=== PATIENT | female | born 1985 | race Two or more races ===

== ENCOUNTER 2023-09-08 15:42 | Emergency (ER) | payer OTHER ==
[2023-09-08] MEDS ORDERED: METOPROLOL XL 50 MG TAB PO ONE (15:58)
[2023-09-08] MEDS ORDERED: METOPROLOL TARTRATE 5 MG/5 ML INJ IV ONE (15:58)
[2023-09-08] MEDS ORDERED: NA CHLORIDE 0.9% 1,000 ML ONE ×2 (15:59→17:25)
[2023-09-08 16:28] LABS: Absolute Basophils 0.1 K/uL (0-0.5); Absolute Eosinophils 0.1 K/uL (0-0.5); Absolute Lymphocytes (CBC) 3.9 K/uL (0.7-4.9); Absolute Monocytes 1.5 K/uL (0.1-1.3); Absolute Neutrophil 8.1 K/uL (1.8-8.0); Basophils % 0.8 % (0-1.3); Hematocrit 44.9 % (36.0-45.0); Hemoglobin 14.7 g/dL (12.0-15.0); Lymphocytes % 28.3 % (15.3-44.8); MCHC 32.8 g/dL (32.0-36.0); MCV 88.3 fL (80-100); MPV 8.2 fL (7.6-11.3); Monocytes % 11.1 % (3.3-12.3); Neutrophils % 58.8 % (41.7-73.7); Platelets 535 thou/uL (152-406); RBC Red Blood Cell Count 5.09 M/uL (3.86-4.86); Red Cell Distribution Width 13.7 % (12.1-15.2)
--- NOTE | 2023-09-08 16:28 | RAD REPORT ---
EXAM DESCRIPTION: RAD - Chest Single View - 09/08/2023 4:20 pm CLINICAL HISTORY: PALPITATIONS Chest pain. COMPARISON: <Comparisons> FINDINGS: Portable technique limits examination quality. The lungs are grossly clear. The heart is normal in size. No displaced fractures. IMPRESSION: No acute intrathoracic process suspected.
[2023-09-08 16:49] LABS: ALT/SGPT 36 U/L (13-56); AST/SGOT 12 U/L (15-37); Albumin 3.8 g/dL (3.4-5.0); Albumin/Globulin Ratio 0.8 (1.1-1.8); Alkaline Phosphatase 103 U/L (45-117); Anion Gap 11.5 mEq/L (5.0-15.0); BUN Blood Urea Nitrogen 11 mg/dL (7-18); Bicarbonate 24 mEq/L (21-32); Bilirubin Total 0.6 mg/dL (0.2-1.0); Globulin 4.5 g/dL (2.3-3.5); Glomerular Filtration Rate 58 ml/min (=/>90); Glucose Level 133 mg/dL (74-106); NT PRO-BNP 6 pg/mL (<125); PT Prothrombin Time 12.3 SECONDS (9.5-12.5); Potassium 3.5 mEq/L (3.5-5.1); Protein, Total 8.3 g/dL (6.4-8.2); Protime INR 1.12; Sodium Level 139 mEq/L (136-145); Troponin High Sensitivity 3.3 pg/mL (<58.9)
[2023-09-08] MEDS ORDERED: MAGNESIUM SULFATE 1 gm IVPB 1 GM/100 ML BAG IV ONE (16:56)
[2023-09-08 16:57] LABS: Bilirubin Direct < 0.2 mg/dL (0-0.2); Bilirubin Indirect, Calculated 0.4 mg/dL (0.2-0.8)
[2023-09-08 17:02] LABS: Specific Gravity 1.011 (1.005-1.030); Sqamous Epithelial <5 /HPF (None Seen); Urine Bacteria None Seen /HPF (<20); Urine Bilirubin NEGATIVE (Negative); Urine Blood Negative (Negative); Urine Clarity Clear (Clear); Urine Color Light-Yellow (Yellow); Urine Culture Reflex Order NOT NEEDED; Urine Glucose NEGATIVE (Negative); Urine Ketones NEGATIVE (Negative); Urine Microscopic Reflex YN ORDER UMIC; Urine Mucus Slight /HPF (None Seen); Urine Nitrite NEGATIVE (Negative); Urine Protein TRACE (Negative); Urine RBC <5 /HPF (None Seen); Urine Urobilinogen Normal (Normal); Urine WBC <5 /HPF (<5)
--- NOTE | 2023-09-08 17:35 | RAD REPORT ---
EXAM DESCRIPTION: US - Extrem Venous W Compress Osmin - 09/08/2023 5:31 pm CLINICAL HISTORY: PAIN Bilateral leg edema and swelling. COMPARISON: No comparisons TECHNIQUE: Real-time sonographic interrogation of the left and right lower extremity deep venous sys tems was performed. FINDINGS: Normal compressibility, flow augmentation, phasic flow and spontaneous flow is identified in both the left and right lower extremity deep venous systems. IMPRESSION: No sonographic evidence of left or right lower extremity deep venous thrombosis.
[2023-09-08 18:32] LABS: Specific Gravity 1.011 (1.005-1.030)
[2023-09-08 18:43] LABS: Barbiturates NEGATIVE (NEGATIVE); Benzodiazepines NEGATIVE (NEGATIVE); Cocaine NEGATIVE (NEGATIVE); METHAMPHETAM NEGATIVE (NEGATIVE); Methadone NEGATIVE (NEGATIVE); Opiates NEGATIVE (NEGATIVE); Phencyclidine NEGATIVE (NEGATIVE); THC Cannibis NEGATIVE (NEGATIVE)
--- NOTE | 2023-09-08 19:03 | RAD REPORT ---
EXAM DESCRIPTION: CT - Chest For Pe Angio - 09/08/2023 6:56 pm CLINICAL HISTORY: Chest pain. DYSPNEA COMPARISON: <Comparisons> TECHNIQUE: CT angiogram of the pulmonary arteries was performed with MIP. All CT scans are performed using dose optimization technique as appropriate and may include automated exposure control or mA/KV adjustment according to patient size. FINDINGS: No evidence of pulmonary thromboembolism. No acute aortic finding demonstrated. The lungs are clear. No significant pericardial or pleural fluid. 18 mm left rib lesion with expansile features probably osteochondroma. IMPRESSION: No evidence of pulmonary thromboembolism. No acute lung findings.
--- NOTE | 2023-09-08 19:12 | ER ---
Nurse's Notes [facility] Name: Angelika Quiroz Age: 38 yrs Sex: Female : 1985 Arrival Date: 09/08/2023 Time: 15:42 Bed 2 Private MD: Diagnosis: Palpitations;Supraventricular tachycardia;Tachycardia, unspecified;Elevated white blood cell count;Abnormal findings on diagnostic imaging of other specified body structures-18 mm left rib lesion , with expansile features, probably OSTEOCHRONDROMA Presentation: 09/07 15:54 Chief complaint: Patient states: Palpitations since 3:10 PM. HR 197-208. Coronavirus hb screen: Client denies travel out of the [place] in the last 14 days. At this time, the client does not indicate any symptoms associated with coronavirus-19. Ebola Screen: Patient denies travel to an Ebola-affected area in the 21 days before illness onset. Initial Sepsis Screen: Does the patient meet any 2 criteria? No. Patient's initial sepsis screen is negative. Does the patient have a suspected source of infection? No. Patient's initial sepsis screen is negative. Risk Assessment: Do you want to hurt yourself or someone else? Patient reports no desire to harm self or others. Onset of symptoms was September 08, 2023. 15:54 Method Of Arrival: Wheelchair hb 15:54 Acuity: JR 2 hb Historical: - Allergies: 15:50 Azithromycin; ll1 - PMHx: 15:50 ADHD; SVT; ll1 - Immunization history:: Adult Immunizations up to date. - Infectious Disease History:: Denies. - Social history:: Smoking status: Patient denies any tobacco usage or history of. - Family history:: not pertinent. Screenin:50 [facility] ED Fall Risk Assessment (Adult) History of falling in the last 3 months, rs5 including since admission No falls in past 3 months (0 pts) Confusion or Disorientation No (0 pts) Intoxicated or Sedated No (0 pts) Impaired Gait No (0 pts) Mobility Assist Device Used No (0 pt) Altered Elimination No (0 pt) Score/Fall Risk Level 0 - 2 = Low Risk Oriented to surroundings, Maintained a safe environment. Abuse screen: Denies threats or abuse. Nutritional screening: No deficits noted. Tuberculosis screening: No symptoms or risk factors identified. Assessment: 15:48 General: Appears in no apparent distress. uncomfortable, Behavior is calm, cooperative. rs5 Pain: Denies pain. Neuro: Level of Consciousness is awake, alert, obeys commands, Oriented to person, place, time, situation. Cardiovascular: Patient's skin is warm and dry. Rhythm is SVT. Cardiovascular: Reports palpitations. Respiratory: Airway is patent Respiratory effort is even, unlabored, Respiratory pattern is regular, symmetrical. GI: Abdomen is round non-distended, Abd is soft and non tender X 4 quads. : No signs and/or symptoms were reported regarding the genitourinary system. EENT: Derm: Skin is intact, Skin is pink, warm \T\ dry. Musculoskeletal: Range of motion: intact in all extremities. 16:00 Reassessment: Patient and/or family updated on plan of care and expected duration. Pain rs5 level reassessed. Patient is alert, oriented x 3, equal unlabored respirations, skin warm/dry/pink. Patient states feeling better. Cardiovascular: Rhythm is sinus tachycardia Provider notified of latest vitals and pulse of 100 bpm. 17:05 Reassessment: Patient and/or family updated on plan of care and expected duration. Pain rs5 level reassessed. Patient is alert, oriented x 3, equal unlabored respirations, skin warm/dry/pink. Patient denies pain at this time. Cardiovascular: Rhythm is sinus tachycardia. 18:11 Reassessment: No changes from previously documented assessment. Cardiovascular: Denies rs5 chest pain. 19:02 Reassessment: Patient and/or family updated on plan of care and expected duration. Pain rs5 level reassessed. Patient is alert, oriented x 3, equal unlabored respirations, skin warm/dry/pink. 19:15 Reassessment: Patient and/or family updated on plan of care and expected duration. Pain lc8 level reassessed. Patient is alert, oriented x 3, equal unlabored respirations, skin warm/dry/pink. Patient states feeling better. Patient states symptoms have improved. Vital Signs: 15:54 BP 131 / 101; Pulse 222; Resp 18; Temp 97.8; Pulse Ox 97% ; Weight 74.84 kg; Height 5 hb ft. 11 in. ; Pain 0/10; 16:10 BP 141 / 97; Pulse 100; Resp 17; Pulse Ox 99% on R/A; rs5 18:11 BP 134 / 104; Pulse 102; Resp 17; Pulse Ox 99% on R/A; rs5 19:00 BP 129 / 98; Pulse 97; Resp 19; Pulse Ox 100% on R/A; lc8 15:54 Body Mass Index 23.01 (74.84 kg, 180.34 cm) hb 15:54 Pain Scale: Adult hb ED Course: 15:43 Patient arrived in ED. rg4 15:45 Hugo Duarte MD is Attending Physician. damion 15:50 Patient has correct armband on for positive identification. Placed in gown. Bed in low rs5 position. Call light in reach. Side rails up X2. 15:50 No provider procedures requiring assistance completed. rs5 15:52 Arm band placed on Patient placed in an exam room, on a stretcher. ll1 15:55 Triage completed. hb 15:58 Inserted saline lock: 18 gauge in right antecubital area, using aseptic technique. hb 16:00 EKG done, by ED staff, reviewed by Hugo Duarte MD. hb 16:00 Inserted saline lock: 20 gauge in left antecubital area, using aseptic technique. rs5 16:02 Client placed on continuous cardiac and pulse oximetry monitoring. NIBP monitoring hb applied. athletic monitor on. Pulse ox on. NIBP on. 16:09 Pollo Jesus, RN is Primary Nurse. rs5 16:22 XRAY Chest (1 view) In Process Unspecified. EDMS 17:32 US Extremity Venous W Compression Osmin In Process Unspecified. EDMS 18:36 UDS Sent. jg11 18:36 Urine collected: clean catch specimen, clear. jg11 18:57 CT Chest For PE Angio In Process Unspecified. EDMS 19:09 Murray Jameson MD is Referral Physician. damion 19:11 Yfn Reece MD is Referral Physician. damion 19:30 IV discontinued, intact, bleeding controlled, No redness/swelling at site. Pressure lc8 dressing applied. 20:14 Provided Education on: medication/ follow up. lc8 Administered Medications: 15:57 Drug: NS 0.9% IV 1000 ml IV at 1 bolus Per protocol; 1000 mL bolus Route: IV; Rate: 1 rs5 bolus; Site: right antecubital; 16:14 Follow up: Response: No adverse reaction rs5 15:57 Drug: Metoprolol IVP 5 mg IVP once; Hold for SBP <100 or HR <60. Route: IVP; Site: rs5 right antecubital; 16:10 Follow up: Response: No adverse reaction; Cardiac rhythm changed rs5 15:57 Drug: Metoprolol PO 50 mg PO once Route: PO; rs5 16:00 Follow up: Response: No adverse reaction rs5 16:16 Drug: Magnesium Sulfate IVPB 1 grams IVPB once over 1 hrs Route: IVPB; Infused Over: 1 rs5 hrs; Site: right antecubital; 16:30 Follow up: Response: No adverse reaction rs5 17:30 Drug: NS 0.9% IV 1000 ml IV at 1 bolus Per protocol; 1000 mL bolus Route: IV; Rate: 1 rs5 bolus; Site: left antecubital; 17:45 Follow up: Response: No adverse reaction rs5 19:00 Follow up: IV Status: Completed infusion; IV Intake: 1000ml lc8 Medication: 16:13 VIS not applicable for this client. rs5 Intake: 19:00 IV: 1000ml; Total: 1000ml. lc8 Outcome: 19:11 Discharge ordered by . damion 19:35 Discharged to home ambulatory, lc8 19:35 Condition: stable 19:35 Discharge instructions given to patient, Instructed on discharge instructions, follow lc8 up and referral plans. medication usage, Demonstrated understanding of instructions, follow-up care, medications, Prescriptions given X 1, 20:05 Patient left the ED. lc8 Signatures: Dispatcher [employer] EDDE Hugo Duarte MD MD cha Baxter, Heather RN Beena Gillespie rg4 Evelia Lopez RN RN ll1 Pollo Jesus RN RN rs5 Gilson Aguilar jg11 Guero Fernandez RN RN lc8 Corrections: (The following items were deleted from the chart) 15:56 15:54 Acuity: JR 3 hb hb 16:13 16:10 Pulse 100bpm; Resp 17bpm; Pulse Ox 99% RA; rs5 rs5 18:11 17:05 Reassessment: Patient and/or family updated on plan of care and expected rs5 duration. Pain level reassessed. Patient is alert, oriented x 3, equal unlabored respirations, skin warm/dry/pink. Patient denies pain at this time. rs5
--- NOTE | 2023-09-08 19:12 | EDPHYS ---
Physician Documentation [facility] Name: Angelika Quiroz Age: 38 yrs Sex: Female : 1985 Arrival Date: 09/08/2023 Time: 15:42 Bed 2 Private MD: ED Physician Hugo Duarte HPI: 09/07 17:14 This 38 yrs old Female presents to ER via Wheelchair with complaints of damion Palpitations. 17:14 The patient presents with a history of heart racing. Context: The symptoms occur at [facility] rest. Onset: The symptoms/episode began/occurred just prior to arrival. Duration: The patient or guardian reports a single episode, that is now resolved. Modifying factors: The symptoms are aggravated by nothing. The symptoms are alleviated by nothing. Associated signs and symptoms: Pertinent positives: lightheadedness. Severity of symptoms: At their worst the symptoms were mild in the emergency department the symptoms have improved. The patient has experienced similar episodes in the past, several times. Historical: - Allergies: 15:50 Azithromycin; ll1 - PMHx: 15:50 ADHD; SVT; ll1 - Immunization history:: Adult Immunizations up to date. - Infectious Disease History:: Denies. - Social history:: Smoking status: Patient denies any tobacco usage or history of. - Family history:: not pertinent. ROS: 17:14 Constitutional: Negative for fever, chills, and weight loss, Eyes: Negative for injury, damion pain, redness, and discharge, ENT: Negative for injury, pain, and discharge, Neck: Negative for injury, pain, and swelling, Respiratory: Negative for shortness of breath, cough, wheezing, and pleuritic chest pain, Abdomen/GI: Negative for abdominal pain, nausea, vomiting, diarrhea, and constipation, Back: Negative for injury and pain, : Negative for injury, bleeding, discharge, and swelling, MS/Extremity: Negative for injury and deformity, Skin: Negative for injury, rash, and discoloration, Neuro: Negative for headache, weakness, numbness, tingling, and seizure, Psych: Negative for depression, anxiety, suicide ideation, homicidal ideation, and hallucinations, Allergy/Immunology: Negative for hives, rash, and allergies, Endocrine: Negative for neck swelling, polydipsia, polyuria, polyphagia, and marked weight changes, Hematologic/Lymphatic: Negative for swollen nodes, abnormal bleeding, and unusual bruising, 17:14 Cardiovascular: Positive for palpitations, Exam: 17:14 Constitutional: This is a well developed, well nourished patient who is awake, alert, damion and in no acute distress. Head/Face: Normocephalic, atraumatic. Eyes: Pupils equal round and reactive to light, extra-ocular motions intact. Lids and lashes normal. Conjunctiva and sclera are non-icteric and not injected. Cornea within normal limits. Periorbital areas with no swelling, redness, or edema. ENT: Nares patent. No nasal discharge, no septal abnormalities noted. Tympanic membranes are normal and external auditory canals are clear. Oropharynx with no redness, swelling, or masses, exudates, or evidence of obstruction, uvula midline. Mucous membranes moist. Neck: Trachea midline, no thyromegaly or masses palpated, and no cervical lymphadenopathy. Supple, full range of motion without nuchal rigidity, or vertebral point tenderness. No Meningismus. Chest/axilla: Normal chest wall appearance and motion. Nontender with no deformity. No lesions are appreciated. Cardiovascular: Regular rate and rhythm with a normal S1 and S2. No gallops, murmurs, or rubs. Normal PMI, no JVD. No pulse deficits. Respiratory: Lungs have equal breath sounds bilaterally, clear to auscultation and percussion. No rales, rhonchi or wheezes noted. No increased work of breathing, no retractions or nasal flaring. Abdomen/GI: Soft, non-tender, with normal bowel sounds. No distension or tympany. No guarding or rebound. No evidence of tenderness throughout. Back: No spinal tenderness. No costovertebral tenderness. Full range of motion. Skin: Warm, dry with normal turgor. Normal color with no rashes, no lesions, and no evidence of cellulitis. MS/ Extremity: Pulses equal, no cyanosis. Neurovascular intact. Full, normal range of motion. Neuro: Awake and alert, GCS 15, oriented to person, place, time, and situation. Cranial nerves II-XII grossly intact. Motor strength 5/5 in all extremities. Sensory grossly intact. Cerebellar exam normal. Normal gait. 17:14 ECG was reviewed by the Attending Physician. Vital Signs: 15:54 BP 131 / 101; Pulse 222; Resp 18; Temp 97.8; Pulse Ox 97% ; Weight 74.84 kg; Height 5 hb ft. 11 in. ; Pain 0/10; 16:10 BP 141 / 97; Pulse 100; Resp 17; Pulse Ox 99% on R/A; rs5 18:11 BP 134 / 104; Pulse 102; Resp 17; Pulse Ox 99% on R/A; rs5 19:00 BP 129 / 98; Pulse 97; Resp 19; Pulse Ox 100% on R/A; lc8 15:54 Body Mass Index 23.01 (74.84 kg, 180.34 cm) hb 15:54 Pain Scale: Adult hb MDM: 15:45 Patient medically screened. damion 17:17 MARIA C Risk Score: Total Score = 0. Differential diagnosis: arrythmia, dehydration, damion stress disorder. Data reviewed: vital signs, nurses notes, lab test result(s), EKG, radiologic studies, CT scan, doppler, plain films. Consideration of Admission/Observation Escalation of care including admission/observation considered. I considered the following discharge prescriptions or medication management in the emergency department Medications were administered in the Emergency Department. See MAR. Independent interpretation of the following test(s) in the Emergency Department EKG: See my EKG interpretation above. Test considered but Not performed: Ultrasound no 2 d echo. Historians other than the Patient: pt well informed. Care significantly affected by the following chronic conditions: Obesity, adhd/svt. Counseling: I had a detailed discussion with the patient and/or guardian regarding the historical points, exam findings, and any diagnostic results supporting the discharge/admit diagnosis, the presence of at least one elevated blood pressure reading (>120/80) during this emergency department visit, lab results, radiology results, the need for outpatient follow up, for definitive care, a taxation inspector, a family practitioner. 09/07 15:46 Order name: Basic Metabolic Panel; Complete Time: 17:06 [facility] 09/07 15:46 Order name: CBC with Diff; Complete Time: 17:06 [facility] 09/07 15:46 Order name: D-Dimer; Complete Time: 17:06 damion 09/07 15:46 Order name: LFT's; Complete Time: 17:06 [facility] 09/07 15:46 Order name: Magnesium; Complete Time: 17:06 [facility] 09/07 15:46 Order name: NT PRO-BNP; Complete Time: 17:06 [facility] 09/07 15:46 Order name: PT-INR; Complete Time: 17:06 [facility] 09/07 15:46 Order name: Troponin HS; Complete Time: 17:06 [facility] 09/07 15:46 Order name: TSH; Complete Time: 17:06 [facility] 09/07 15:46 Order name: Urinalysis w/ reflexes; Complete Time: 17:06 [facility] 09/07 15:46 Order name: PREGU; Complete Time: 18:38 [facility] 09/07 15:46 Order name: UDS 09/07 15:46 Order name: XRAY Chest (1 view); Complete Time: 17:06 [facility] 09/07 17:07 Order name: CT Chest For PE Angio 09/07 17:07 Order name: US Extremity Venous W Compression Osmin; Complete Time: 17:49 [facility] 09/07 15:46 Order name: Cardiac monitoring; Complete Time: 16:04 [facility] 09/07 15:46 Order name: EKG - Nurse/Tech; Complete Time: 16:04 [facility] 09/07 15:46 Order name: IV Saline Lock; Complete Time: 16:04 [facility] 09/07 15:46 Order name: Labs collected and sent; Complete Time: 16:04 [facility] 09/07 15:46 Order name: O2 Per Protocol; Complete Time: 16:04 [facility] 09/07 15:46 Order name: O2 Sat Monitoring; Complete Time: 16:04 [facility] EC:14 Rate is 123 beats/min. Rhythm is regular. QRS [place] is Normal. TN interval is normal. QT damion interval is normal. No Q waves. T waves are Normal. No ST changes noted. Clinical impression: Sinus tachycardia and No evidence of ischemia. Interpreted by me. Reviewed by me. Administered Medications: 15:57 Drug: NS 0.9% IV 1000 ml IV at 1 bolus Per protocol; 1000 mL bolus Route: IV; Rate: 1 rs5 bolus; Site: right antecubital; 16:14 Follow up: Response: No adverse reaction rs5 15:57 Drug: Metoprolol IVP 5 mg IVP once; Hold for SBP <100 or HR <60. Route: IVP; Site: rs5 right antecubital; 16:10 Follow up: Response: No adverse reaction; Cardiac rhythm changed rs5 15:57 Drug: Metoprolol PO 50 mg PO once Route: PO; rs5 16:00 Follow up: Response: No adverse reaction rs5 16:16 Drug: Magnesium Sulfate IVPB 1 grams IVPB once over 1 hrs Route: IVPB; Infused Over: 1 rs5 hrs; Site: right antecubital; 16:30 Follow up: Response: No adverse reaction rs5 17:30 Drug: NS 0.9% IV 1000 ml IV at 1 bolus Per protocol; 1000 mL bolus Route: IV; Rate: 1 rs5 bolus; Site: left antecubital; 17:45 Follow up: Response: No adverse reaction rs5 19:00 Follow up: IV Status: Completed infusion; IV Intake: 1000ml lc8 Disposition Summary: 09/08/23 19:11 Discharge Ordered Notes: Location: Home damion Problem: new damion Symptoms: have improved damion Condition: Stable damion Diagnosis - Palpitations damion - Supraventricular tachycardia damion - Tachycardia, unspecified damion - Elevated white blood cell count damion - Abnormal findings on diagnostic imaging of other specified body structures - 18 mm damion left rib lesion , with expansile features, probably OSTEOCHRONDROMA Followup: damion - With: Private Physician - When: 2 - 3 days - Reason: Recheck today's complaints, Continuance of care, Re-evaluation by your physician Followup: damion - With: Murray Jameson MD - When: 2 - 3 days - Reason: Recheck today's complaints, Continuance of care, Re-evaluation by your physician Followup: damion - With: Yfn Reece MD - When: 2 - 3 days - Reason: Recheck today's complaints, Re-evaluation by your physician Discharge Instructions: - Discharge Summary Sheet damion - Palpitations damion - Supraventricular Tachycardia, Adult damion - Supraventricular Tachycardia, Adult, [id number] damion - Incidental Abnormal Radiological Finding damion - Aspirin and Your Heart damion - Palpitations, [id number] damion Forms: - Medication Reconciliation Form damion - Antibiotic Education damion - Prescription Opioid Use damion - Patient Portal Instructions damion - Leadership Thank You Letter damion Prescriptions: - Toprol XL 50 mg Oral Tablet - take 1 tablet ORAL route once daily; 20 tablet; Refills: 0, Product Selection damion Permitted Signatures: Dispatcher [employer] Hugo Michaels MD MD cha Baxter, Heather, RN RN Evelia Lopez RN RN ll1 Pollo Jesus RN RN rs5 Guero Fernandez RN lc8 Corrections: (The following items were deleted from the chart) 15:47 15:47 BASIC METABOLIC PANEL+C.LAB.BRZ ordered. EDMS EDMS 15:47 15:47 CBC+H.LAB.BRZ ordered. EDMS EDMS 15:47 15:47 D-DIMER+COAG.LAB.BRZ ordered. EDMS EDMS 15:47 15:47 HEPATIC FUNCTION+C.LAB.BRZ ordered. EDMS EDMS 15:47 15:47 MAGNESIUM+C.LAB.BRZ ordered. EDMS EDMS 15:47 15:47 PROBNP+C.LAB.BRZ ordered. EDMS EDMS 15:47 15:47 PROTIME (+INR)+COAG.LAB.BRZ ordered. EDMS EDMS 15:47 15:47 Troponin High Sensitivity+C.LAB.BRZ ordered. EDMS EDMS 15:47 15:47 THYROID STIMULAT HORMONE+C.LAB.BRZ ordered. EDMS EDMS 15:47 15:47 Urinalysis+U.LAB.BRZ ordered. EDMS EDMS 15:47 15:47 Test, Urine+UC.LAB.BRZ ordered. EDMS EDMS 15:47 15:47 URINE DRUG SCREEN+UC.LAB.BRZ ordered. EDMS EDMS 17:07 17:07 Chest For PE Angio+CT.RAD.BRZ ordered. EDMS EDMS 17:07 17:07 Extrem Venous W Compression Osmin+US.RAD.BRZ ordered. EDMS EDMS
[2023-09-08 20:21] VITALS: BP 129/98; TEMP 97.8; O2SAT 100
--- NOTE | 2023-09-11 15:01 | EKG ---
Test Date: 2023-09-08 Test Time: 16:00:10 [employer]er Department Manager: ANTHONY MEASUREMENT RESULTS: Intervals: Rate: 123 GA: 146 QRSD: 70 QT: 316 QTc: 452 [place]: P: 51 GA: 146 QRS: 44 T: 63 INTERPRETIVE STATEMENTS: Sinus tachycardia Septal infarct, age undetermined Abnormal ECG No previous ECG available for comparison Electronically Signed On 09-11-23 14:53:42 CDT by Murray Jameson
== END 2023-09-08 20:05 | disposition home or self-care (01) ==
LOC: ER 15:42
DX: I47.10 Supraventricular tachycardia, unspecified (principal); D72.829 Elevated white blood cell count, unspecified; R93.89 Abnormal findings on diagnostic imaging of other specified body structures
CPT/HCPCS: 96361; 85025; 81001; 80048; 36415; 83735; 81025; 85610; 85379; 80076; 84443; 84484; 83880; 80307; 71275; 71045; 93970; 96375; 96374; 99285; Q9967; J3475; J7030 ×2; 93005